=== PATIENT | female | born 1955 | race Caucasian/White ===

== ENCOUNTER 2021-04-23 09:03 | Emergency (ER) | payer MEDICARE, SELFPAY ==
[2021-04-23 09:05] VITALS: BP 141/72; PULSE 68; RESP 19; TEMP 36.8; O2SAT 99; BMI 25.0
[2021-04-23 09:40] LABS: Apearance,Urine Clear (Clear); Bilirubin,Urine Negative (Negative); Blood, Urine 1+ (Negative); Color,Urine Dark Yellow (Yellow); Glucose,Urine (UA) Negative (Negative); Ketones,Urine Negative (Negative); Protein,Urine Negative (Negative); UTC Leukocyte Esterase,Urine 3+ (Negative); UTC Nitrate,Urine Negative (Negative); Urobilinogen,Urine 0.2 EU/dl (0.2)
--- NOTE | 2021-04-23 09:40 | HMH.EDUTC ---
[facility] [place] Impression: UTI (urinary tract infection) Qualifiers: Urinary tract infection type: acute cystitis Hematuria presence: with hematuria Qualified Code(s): N30.01 - Acute cystitis with hematuria Disposition: Home, Self-Care Condition on Discharge: Good Instructions: Urinary Tract Infection Additional Instructions: Increase fluids, water and not soda or tea. Can drink cranberry juice or cranberry extract. White front to back Wear cotton underwear Empty bladder after intercourse Start antibiotics immediately and make sure you take the full course although you may start to see improvement over the next 48 hours. You can eat yogurt or take probiotics to decrease diarrhea or yeast infection caused by the antibiotic Be sure to follow-up anytime for new or worsening symptoms in 48 hours for wound urine culture results be sure to let you PCP no recent urine for culture so they can request records and ensure that you have appropriate antibiotic if you are not getting better or getting worse. If symptoms worsen or do not improve return or be seen in the ER. Follow-up with primary care this week. Prescriptions: levoFLOXacin [Levaquin 500mg tab] 500 mg PO DAILY 5 Days #5 tab Transmission Status: Pending to [id number] Referrals: Provider,Referral, [Primary Care Provider] - Time of Disposition: 09:43 Medical Decision Making - Mj Inquiry Pt receiving controlled substance: No Vital Signs: 04/23/21 09:05 Temperature 98.2 F Temperature Source Oral Pulse Rate [Right Brachial] 68 Respiratory Rate 19 Blood Pressure [Right Arm] 141/72 H Blood Pressure Mean [Right Arm] 95 Blood Pressure Source [Right Arm] Automatic Cuff Blood Pressure Position [Right Arm] Sitting 02 Sat by Pulse Oximetry 99 Oxygen Delivery Method Room Air [facility] [place] - General Chief complaint: Urgent Treatment Center Stated complaint: possible uti Time Seen by Provider: 04/23/21 09:40 Mode of Arrival: Ambulatory Source of Information: Patient Limitations: No Limitations Description of Symptoms (Recalled from Triage Doc. by RN): PATIENT C/O PAIN, BURNING, AND FREQUENCY WITH URINATION X 3 DAYS HEENT Symptoms (Recalled from RN notes): No Resp Symptoms (Recalled from RN notes): No Skin Symptoms (Recalled from RN notes): No MS Symptoms (Recalled from RN notes): No Functional Status (Recalled from RN notes): WNL - History of Present Illness Provider Complaint: 65 yr old female presents for burning with urination,freq,urgency, and pelvic pressure for 3 days - Related Data Home Medications Medication Instructions Recorded Confirmed Escitalopram Oxalate [Lexapro] 20 mg PO DAILY 12/22/18 12/22/18 Levothyroxine Sodium [Synthroid 50 mcg PO DAILY 12/22/18 04/23/21 50mcg (0.05mg) tab] Thyroid,Pork [Php Wordpress Developer Thyroid] 60 mg PO DAILY 12/22/18 12/22/18 Zolpidem Tartrate [Ambien 5mg 5 mg PO HSP PRN 12/22/18 12/22/18 tablet] Previous Rx's Medication Instructions Recorded Fluconazole [Diflucan 150mg tab] 150 mg PO ONCE #1 tab 12/22/18 Nystatin [Nystatin Cr 100,000 1 applicatio TP TID 7 Days #1 tube 12/22/18 Units/GM 30GM] Phenazopyridine HCl [Pyridium 200 pow PO TID #6 tab 12/22/18 200mg Tablet] Sulfamethoxazole/Trimethoprim 1 each PO BID 5 Days #10 tab 12/22/18 [Bactrim DS tablet] levoFLOXacin [Levaquin 500mg 500 mg PO DAILY 5 Days #5 tab 04/23/21 tab] Allergies Allergy/AdvReac Type Severity Reaction Status Date / Time acetaminophen [From Lortab] Allergy Verified 12/22/18 10:18 cephalexin [From Keflex] Allergy Verified 04/23/21 09:37 hydrocodone [From Lortab] Allergy Verified 12/22/18 10:18 minocycline Allergy Verified 12/22/18 10:18 - Worker's Comp Is this a Worker's Comp case?: No [facility] History - Hepatitis A Screen Drug use history?: No High risk sexual behaviors?: No History of sexually transmitted infection?: No Currently employed?: No Childcare worker?: No
[2021-04-23 09:46] VITALS: BP 141/72; PULSE 68; RESP 19; TEMP 36.8; O2SAT 99
== END 2021-04-23 09:52 | disposition home or self-care (01) ==
PROVIDERS: Emergency Provider Nurse Practitioner Family
DX: N30.01 Acute cystitis with hematuria (principal)
CPT/HCPCS: G0463; 81003; 87086; 87088; 87186; 99202

== ENCOUNTER 2021-10-27 10:18 | Emergency (ER) | payer MEDICARE, SELFPAY ==
[2021-10-27 12:04] LABS: Apearance,Urine Clear (Clear); Bilirubin,Urine Negative (Negative); Blood, Urine Negative (Negative); Color,Urine Yellow (Yellow); Glucose,Urine (UA) Negative (Negative); Ketones,Urine Negative (Negative); Protein,Urine Negative (Negative); Specific Gravity, Urine 1.015 (1.005-1.030); UTC Leukocyte Esterase,Urine 2+ (Negative); UTC Nitrate,Urine Negative (Negative); Urobilinogen,Urine 0.2 EU/dl (0.2)
[2021-10-27 12:05] VITALS: BP 144/76; PULSE 74; RESP 19; TEMP 36.7; O2SAT 98; BMI 24.2
--- NOTE | 2021-10-27 12:17 | HMH.EDUTC ---
[facility] [place] Clinical Impression: UTI (urinary tract infection) Qualifiers: Urinary tract infection type: site unspecified Hematuria presence: without hematuria Qualified Code(s): N39.0 - Urinary tract infection, site not specified Disposition: Home, Self-Care Condition on Discharge: Good Instructions: DI for Urinary Tract Infection (UTI), Urinary Tract Infection, Levofloxacin Additional Instructions: *Increase fluids. Water not Soda or Tea *Start antibiotic immediately and be sure to take as ordered for the FULL length of time although you should start to see improvement over the next 48 hours *Be SURE to follow up anytime for new or worsening symptoms with your family doctor. AND in 48 hours for urine culture results with your family doctor, if you do not have a doctor then you may call back to the [facility] for urine culture results and further treatment. We do recommend that you choose and establish care with a Primary Care Physician. AND follow up with them in 10-14 days to repeat UA to ensure infection is resolved and blood no longer present *Be sure to let your PCP know that we sent urine cultures from the [facility] so they can follow up to ensure that you area the on the correct antibiotic Call your doctor office and make appointment for 48 hours (2 days from today) to follow up and get the results of your urine culture and further treatment Prescriptions: levoFLOXacin [Levaquin 500mg tab] 500 mg PO DAILY 7 Days #7 tab Transmission Status: Pending to [id number] Referrals: Provider,Referral, [Primary Care Provider] - As needed Time of Disposition: 12:43 Medical Decision Making - Mj Inquiry Pt receiving controlled substance: No Mj was queried for this patient: No Vital Signs: 10/27/21 12:05 Temperature 98.1 F Temperature Source Oral Pulse Rate [Left] 74 Respiratory Rate 19 Blood Pressure [Right Arm] 144/76 H Blood Pressure Mean [Right Arm] 98 02 Sat by Pulse Oximetry 98 - Lab Data Lab results reviewed: Yes: I reviewed the patient's lab results. Lab Results 10/27/21 11:54: Urine Color Yellow, Urine Appearance Clear, Urine pH 7.0, Ur Specific [place] 1.015, Urine Protein Negative, Urine Glucose (UA) Negative, Urine Ketones Negative, Urine Blood Negative, Urine Nitrate Negative, Urine Bilirubin Negative, Urine Urobilinogen 0.2, Ur Leukocyte Esterase 2+ A Orders (Tests/Meds): ORDERS Category Date Time Status Urine Culture Stat Micro 10/27/21 11:53 Received Medical Decision Narrative: Patient denies kidney disease/issues and reports she has taken levaquin before without complications or reactions [facility] [place] - General Stated complaint: blood in urine Time Seen by Provider: 10/27/21 12:18 Mode of Arrival: Ambulatory Source of Information: Patient Limitations: No Limitations Description of Symptoms (Recalled from Triage Doc. by RN): pt c/o minimal urogentital bleeding, middle back pain, chills, nausea and body aches since last night. HEENT Symptoms (Recalled from RN notes): No Resp Symptoms (Recalled from RN notes): No Skin Symptoms (Recalled from RN notes): No MS Symptoms (Recalled from RN notes): Yes Functional Status (Recalled from RN notes): wnl - History of Present Illness Provider Complaint: Patient states that she thinks she has a UTI States that she had some blood in her urine last night and a little this morning States that she is having achy like feeling in her lower back like she gets with a UTI Had a little nausea yesterday but thinks that was from something she eat Denies fever, denies pain in her abdomen - Related Data Home Medications Medication Instructions Recorded Confirmed Escitalopram Oxalate [Lexapro] 20 mg PO DAILY 12/22/18 12/22/18 Levothyroxine Sodium [Synthroid 50 mcg PO DAILY 12/22/18 04/23/21 50mcg (0.05mg) tab] Thyroid,Pork [Chemical Operations Specialist Thyroid] 60 mg PO DAILY 12/22/18 12/22/18 Zolpidem Tartrate [Ambien 5mg 5 mg PO HSP PRN 12/22/1812/22
[2021-10-27 12:57] VITALS: BP 144/76; PULSE 74; RESP 98; TEMP 36.7
== END 2021-10-27 12:58 | disposition home or self-care (01) ==
PROVIDERS: Emergency Provider Nurse Practitioner
DX: N30.01 Acute cystitis with hematuria (principal); M54.6 Pain in thoracic spine; R11.0 Nausea; M79.10 Myalgia, unspecified site; Z79.899 Other long term (current) drug therapy; Z88.5 Allergy status to narcotic agent; Z88.6 Allergy status to analgesic agent; Z88.8 Allergy status to other drugs, medicaments and biological substances
CPT/HCPCS: 81003; 87086; 87088; 87186; 99213; G0463